=== PATIENT | female | born 1980 | race African-American/Black ===

== ENCOUNTER 2021-05-19 11:31 | Outpatient (CLI) | payer OTHER | END 2021-05-19 23:59 | disposition home or self-care (01) | LOC: RAD 11:31 | PROVIDERS: ATTEND Internal Medicine Infectious Disease | DX: Z11.1 Encounter for screening for respiratory tuberculosis (principal) | CPT/HCPCS: 71046 ==

== ENCOUNTER 2022-10-10 12:45 | Outpatient (CLI) | payer BC ==
[2022-10-10 13:36] LABS: BASOPHILS # (AUTO) 0.1 X10'3 (0-0.2); BASOPHILS % (AUTO) 0.8 % (0-1); EOSINOPHILS # (AUTO) 0.1 X10'3 (0-0.9); EOSINOPHILS % (AUTO) 1.9 % (0-6); HEMOGLOBIN 9.1 g/dl (12.0-16.0); LYMPHOCYTES # (AUTO) 1.7 X10'3 (1.1-4.8); LYMPHOCYTES % (AUTO) 25.5 % (21-51); MEAN CORPUSCULAR HEMOGLOBIN 22.6 PG (27.0-31.0); MEAN CORPUSCULAR HGB CONC 29.6 g/dL (33.0-36.5); MEAN PLATELET VOLUME 9.5 FL (7.4-10.4); MONOCYTES # (AUTO) 0.6 X10'3 (0-0.9); MONOCYTES % (AUTO) 8.7 % (2-12); NEUTROPHILS # (AUTO) 4.2 X10'3 (1.8-7.7); NEUTROPHILS % (AUTO) 63.1 % (42-75); PLATELET COUNT 303 X10'3 (140-440); RED BLOOD COUNT 4.05 X10'6 (4.20-5.60); RED CELL DISTRIBUTION WIDTH 25.3 % (11.5-14.5); WHITE BLOOD COUNT 6.7 X10'3 (4.5-11.0)
[2022-10-10 14:06] LABS: ALANINE AMINOTRANSFERASE 11 U/L (12-78); ALBUMIN 3.5 G/DL (3.4-5.0); ALBUMIN/GLOBULIN RATIO 0.9 (1.1-1.5); ALKALINE PHOSPHATASE 48 IU/L (46-116); ANION GAP 5 (8-16); ASPARTATE AMINO TRANSFERASE 19 U/L (10-37); BILIRUBIN,TOTAL 0.1 MG/DL (0.1-1.0); BLOOD UREA NITROGEN 11 MG/DL (7-18); BUN/CREATININE RATIO 16.4 (10.0-20.0); CALCIUM 8.9 MG/DL (8.5-10.1); CHLORIDE 106 MMOL/L (99-107); CREATININE 0.67 MG/DL (0.40-0.90); GLUCOSE 91 MG/DL (70-104); POTASSIUM 3.6 MMOL/L (3.5-5.1); SODIUM 140 MMOL/L (135-145); TOTAL CARBON DIOXIDE 29.3 MMOL/L (24-32); TOTAL PROTEIN 7.4 G/DL (6.4-8.2); eGFR > 90 ML/MIN
[2022-10-10 14:07] LABS: CHOL/HDL RATIO 3.4 (0.00-4.99); CHOLESTEROL 174 MG/DL (0-200); HDL CHOLESTEROL 51 MG/DL (35-60); LDL CHOLESTEROL 94 MG/DL (50-100); TRIGLYCERIDES 130 MG/DL (20-135)
[2022-10-10 14:40] LABS: MEAN CORPUSCULAR VOLUME 76.5 FL (78-98)
[2022-10-10 14:43] LABS: PLATELET ESTIMATE NORMAL
[2022-10-10 14:44] LABS: ANISOCYTOSIS 3+; ELLIPTOCYTES FEW; HYPOCHROMASIA 1+; MICROCYTOSIS 1+
[2022-10-10 14:46] LABS: LARGE PLATELETS FEW
[2022-10-10 14:50] LABS: POIKILOCYTOSIS 1+
== END 2022-10-10 23:59 | disposition home or self-care (01) ==
LOC: LAB 12:45
PROVIDERS: ATTEND Physician Assistant
DX: R73.01 Impaired fasting glucose (principal); R53.83 Other fatigue; Z76.89 Persons encountering health services in other specified circumstances
CPT/HCPCS: 36415; 80053; 80061; 84439; 84443; 85008; 85025

== ENCOUNTER 2023-04-05 23:00 | Emergency (ER) | payer BC, OTHER ==
[~2023-04-05] VITALS: Ht 170.2 cm; Wt 70.9 kg
[2023-04-05] MEDS ORDERED: BICT1TAB PO (23:26)
[2023-04-05 23:44] VITALS: BP 118/74; PULSE 74; RESP 17; TEMP 98.2; O2SAT 99
== END 2023-04-05 23:47 | disposition home or self-care (01) ==
LOC: ER 23:00
DX: Z77.21 Contact with and (suspected) exposure to potentially hazardous body fluids (principal); Z79.899 Other long term (current) drug therapy
CPT/HCPCS: 99283

== ENCOUNTER → 2023-08-16 | Outpatient (CLI) | payer BC ==
[~2023-08-16] MED LIST: BICT1TAB PO
[2023-08-16 15:57] LABS: BASOPHILS # (AUTO) 0.1 X10'3 (0-0.2); EOSINOPHILS # (AUTO) 0.2 X10'3 (0-0.9); HEMOGLOBIN 7.7 g/dl (12.0-16.0)
[2023-08-16 15:59] LABS: BASOPHILS % (AUTO) 1.2 % (0-1); EOSINOPHILS % (AUTO) 2.6 % (0-6); HEMATOCRIT 26.4 % (35.0-45.0); LYMPHOCYTES # (AUTO) 1.6 X10'3 (1.1-4.8); LYMPHOCYTES % (AUTO) 27.6 % (21-51); MEAN CORPUSCULAR HEMOGLOBIN 19.6 PG (27.0-31.0); MEAN CORPUSCULAR HGB CONC 29.1 g/dL (33.0-36.5); MEAN CORPUSCULAR VOLUME 67.4 FL (78-98); MEAN PLATELET VOLUME 9.9 FL (7.4-10.4); MONOCYTES # (AUTO) 0.7 X10'3 (0-0.9); MONOCYTES % (AUTO) 11.3 % (2-12); NEUTROPHILS # (AUTO) 3.4 X10'3 (1.8-7.7); NEUTROPHILS % (AUTO) 57.3 % (42-75); PLATELET COUNT 288 X10'3 (140-440); RED BLOOD COUNT 3.92 X10'6 (4.20-5.60); RED CELL DISTRIBUTION WIDTH 17.8 % (11.5-14.5); WHITE BLOOD COUNT 5.9 X10'3 (4.5-11.0)
[2023-08-16 16:21] LABS: ALANINE AMINOTRANSFERASE 16 U/L (12-78); ALBUMIN 3.6 G/DL (3.4-5.0); ALBUMIN/GLOBULIN RATIO 0.9 (1.1-1.5); ALKALINE PHOSPHATASE 43 IU/L (46-116); ANION GAP 7 (8-16); ASPARTATE AMINO TRANSFERASE 22 U/L (10-37); BILIRUBIN,TOTAL 0.4 MG/DL (0.1-1.0); BLOOD UREA NITROGEN 14 MG/DL (7-18); BUN/CREATININE RATIO 20.9 (10.0-20.0); CALCIUM 8.6 MG/DL (8.5-10.1); CHLORIDE 106 MMOL/L (99-107); CHOL/HDL RATIO 3.1 (0.00-4.99); CHOLESTEROL 203 MG/DL (0-200); CREATININE 0.67 MG/DL (0.40-0.90); GLUCOSE 102 MG/DL (70-104); HDL CHOLESTEROL 65 MG/DL (35-60); LDL CHOLESTEROL 115 MG/DL (50-100); POTASSIUM 3.9 MMOL/L (3.5-5.1); SODIUM 140 MMOL/L (135-145); THYROID STIMULATING HORMONE 1.51 ulU/ml (0.34-4.50); TOTAL CARBON DIOXIDE 26.7 MMOL/L (24-32); TOTAL PROTEIN 7.7 G/DL (6.4-8.2); TRIGLYCERIDES 75 MG/DL (20-135); eGFR > 90 ML/MIN
[2023-08-16 16:29] LABS: PLATELET ESTIMATE NORMAL
[2023-08-16 16:30] LABS: ANISOCYTOSIS 1+; MICROCYTOSIS 2+; STOMATOCYTES FEW
== END | disposition home or self-care (01) ==
LOC: LAB 15:29
PROVIDERS: ATTEND Nurse Practitioner
DX: R53.83 Other fatigue (principal); Z13.220 Encounter for screening for lipoid disorders
CPT/HCPCS: 80053; 80061; 84443; 85008; 85025

== ENCOUNTER 2024-11-23 07:04 | Outpatient (CLI) | payer BC ==
[2024-11-23 07:54] LABS: % IRON SATURATION 3 % (11-46)
[2024-11-23 07:58] LABS: MEAN PLATELET VOLUME 9.2 FL (7.4-10.4); RED CELL DISTRIBUTION WIDTH 22.5 % (11.5-14.5)
[2024-11-23 08:07] LABS: CREATININE 0.62 MG/DL (0.40-0.90); TOTAL CARBON DIOXIDE 24.6 MMOL/L (24-32); eGFR > 90 ML/MIN
[2024-11-23] MEDS ORDERED: OMEP40CA21 PO (19:49)
[2024-11-23] MEDS ORDERED: ACET-2119 PO (19:49)
[2024-11-24] MEDS ORDERED: FERR325T7 PO (12:10)
[2024-11-24] MEDS ORDERED: DOCU-171 PO (12:11)
== END 2024-11-23 23:59 | disposition home or self-care (01) ==
LOC: RAD 07:04
PROVIDERS: ATTEND Nurse Practitioner
DX: D64.9 Anemia, unspecified (principal)
CPT/HCPCS: 80053; 82728; 83540; 83550; 85025

== ENCOUNTER 2024-11-23 11:22 | Inpatient (IN) | payer BC ==
[~2024-11-23] VITALS: Ht 167.6 cm; Wt 70.5 kg
[2024-11-23 11:52] LABS: MEAN PLATELET VOLUME 9.0 FL (7.4-10.4); RED CELL DISTRIBUTION WIDTH 21.9 % (11.5-14.5)
[2024-11-23 11:57] LABS: APTT 23 SECONDS (22-32); INR 1.0 INR
[2024-11-23 11:58] LABS: CREATININE 0.66 MG/DL (0.40-0.90); TOTAL CARBON DIOXIDE 24.4 MMOL/L (24-32); eCRCL 101 ML/MIN; eGFR > 90 ML/MIN
[2024-11-23 12:25] LABS: PLATELET ESTIMATE DECREASED
[2024-11-23 12:28] LABS: ELLIPTOCYTES 1+
--- NOTE | 2024-11-23 15:52 | Physician Documentation ---
History of Present Illness ~ Chief Complaint: Abnormal Lab(s) Stated Complaint: SEE CHIEF Time Seen by MD: 14:35 Mode of Arrival: Ambulatory HPI 44-year-old female presenting until hospital after she was called by her primary care physician and told that she has a very low hemoglobin. Patient had labs done as an outpatient and had a hemoglobin of 6.8. Patient states that she has a history of fibroids and that for the past six months more or less she has been having very heavy periods. Occasionally she will feel weak and fatigued however over the past couple of days she has not felt this way. She otherwise denies any abdominal pain, chest pain, dizziness or any other associated symptoms. Reports that she is scheduled to have a pelvic transvaginal ultrasound done tomorrow morning. Medication Reconciliation Allergies: Coded Allergies: No Known Allergies (Unverified , 11/23/24) Scheduled Bictegrav/Emtricit/Tenofov Ala (Biktarvy 50-200-25 mg Tablet), 1 TAB PO DAILY Past Medical History Past Medical History: No Pertinent History Past Surgical History: no surgical history Alcohol Use: None Drug Use: none Lives In: Home Occupation: employed Review of Systems All Other Systems at this time: Reviewed and Negative Physical Exam Vital Signs: Temperature: 97.9, Source: Temporal, Heart Rate: 72, Respiratory Rate: 18, BP: 122/77, Pulse Oximetry: 100, Weight: 70.450 Oxygen Flow Rate: 0 Physical Exam I have reviewed the triage vitals. CONST: Well developed and well nourished. In no acute distress HENT: Head Atraumatic EYES: Pupils are equal, round and reactive to light. Normal conjunctiva NECK: Normal range of motion. Supple. CARDIO: Normal rate and regular rhythm. No murmurs, rubs, or gallops. S1, S2. PULM/CHEST: No respiratory distress. Lungs clear to auscultation. No wheeze ABD: Soft and nontender. Nondistended. Bowel sounds normal. No guarding. : Exam deferred MSK: No edema. No deformity. NEURO: Alert and oriented to person, place and time. Moving all extremities SKIN: Warm and dry. PSYCH: Normal mood and affect. Good eye contact. Progress Results/Orders Results/Orders Vital Signs 11/23/24 11/23/24 11/23/24 11:26 14:52 15:01 Temp 97.9 Pulse 94 72 Resp 18 18 B/P (MAP) 125/82 122/77 (92) Pulse Ox 100 100 O2 Flow Rate 0 Laboratory Tests Test 11/23/24 11:35 White Blood Count 5.5 Red Blood Count 3.60 L Hemoglobin 6.8 *L Hematocrit 22.6 L Mean Corpuscular Volume 62.8 L Mean Corpuscular Hemoglobin 18.8 L Mean Corpuscular Hemoglobin Concent 29.9 L Red Cell Distribution Width 21.9 H Platelet Count 143 Mean Platelet Volume 9.0 Neutrophils (%) (Auto) 52.1 Lymphocytes (%) (Auto) 35.1 Monocytes (%) (Auto) 9.7 Eosinophils (%) (Auto) 1.8 Basophils (%) (Auto) 1.3 H Neutrophils # (Auto) 2.9 Lymphocytes # (Auto) 1.9 Monocytes # (Auto) 0.5 Eosinophils # (Auto) 0.1 Basophils # (Auto) 0.1 CBC Comment Platelet Estimate Decreased Red Blood Cell Morphology Perf Polychromasia 1+ Hypochromasia 2+ Basophilic Stippling Anisocytosis 3+ Microcytosis 2+ Elliptocytes 1+ Prothrombin Time 10.1 INR International Normalized Ratio 1.0 Activated Partial Thromboplast Time 23 Coagulation Comments Sodium Level 139 Potassium Level 3.9 Chloride Level 106 Carbon Dioxide Level 24.4 Anion Gap 9 Blood Urea Nitrogen 9 Creatinine 0.66 Estimated GFR/1.73 m2 > 90 BUN/Creatinine Ratio 13.6 Glucose Level 104 Calcium Level 8.9 Total Bilirubin 0.3 Aspartate Amino Transf (AST/SGOT) 18 Alanine Aminotransferase (ALT/SGPT) 10 L Alkaline Phosphatase 48 Total Protein 7.3 Albumin 3.6 Globulin 3.7 Albumin/Globulin Ratio 1.0 L Chemistry Comments Departure Referrals: NO PRIMARY CARE PROVIDER (PCP) ELLE GIBSON MD Nov 23, 2024 15:52
[2024-11-23] MEDS ORDERED: potassium Cl 20 mEq SR tablet PO PRN ×2 (17:25)
[2024-11-23] MEDS ORDERED: potassium Cl 40MEQ/1/2NS 520ml 520 ML IV PRN (17:25)
[2024-11-23] MEDS ORDERED: magnesium hydroxide 30ml (MOM) UD suspension PO PRN (17:25)
[2024-11-23] MEDS ORDERED: magnesium sulf-water 4G/100mL 100 ML IV PRN (17:25)
[2024-11-23] MEDS ORDERED: mag hydrox/Alum hydrox/simeth 30ml oral suspension PO PRN (17:25)
[2024-11-23] MEDS ORDERED: ondansetron/PF 4mg/2ml inj IV PRN (17:25)
[2024-11-23] MEDS ORDERED: magnesium sulf-water 2g/50mL 50 ML IV PRN (17:25)
[2024-11-23] MEDS ORDERED: HYDROcodone/acetaminophen 5mg/325mg tablet PO PRN (17:25)
--- NOTE | 2024-11-23 18:15 | HISTORY AND PHYSICAL ---
History & Physical Providers to ~ History of Present Illness Reason for Admit\Complaint: Anemia, menorrhagia History of Present Illness Marce Schuster is a 44-year-old female with a past medical history of uterine fibroids who presented to the ED after being instructed by her primary care physician to go to ED concerning for low hemoglobin. Presented states she was diagnosed of uterine fibroids in 2016 and started experiencing intermittent heavy menstruation over the past year. Patient does not report any particular symptoms other than chills. Patient denies prior SD/CAD, CVA, cardiac arrhythmia, DVT/PE, or GIB. Patient denies chest pain, palpitations, shortness of breath, abdominal pain, n/v/d, fever, dizziness, dysuria. Initial diagnostic findings are notable for hemoglobin of 6.8g/dL but otherwise vitals procal exam are unremarkable. MEDICAL UNDERWRITER Jeffrey Rizzo consulted. Patient is to be admitted for further workups and treatment. Allergies: Coded Allergies: No Known Allergies (Unverified , 11/23/24) Home Medications Home Medications Active Biktarvy 50-200-25 mg Tablet (Bictegrav/Emtricit/Tenofov Ala) 50 Mg-200 Mg-25 Mg Tablet 1 Tab PO DAILY 30 Days Past Social History Social History Comment Alcohol: Denies Tobacco: Denies Illicit drug use: Denies Living situation: Lives at home with family ROS ROS Other than positives in HPI, all 14 review of systems are negative Exam Vitals: Vital Signs Date Time Temp Pulse Resp B/P (MAP) Pulse Ox O2 Delivery O2 Flow Rate FiO2 11/23/24 17:00 86 18 122/72 (89) 100 0 11/23/24 11:26 97.9 General: A&Ox 3, NAD HEENT: Normocephalic, PERRLA Neck: Supple, trachea midline, no JVD Chest: Clear to auscultation bilaterally Cardiovascular: RRR, S1&S2 Abdomen: Soft and nontender Extremities: No cyanosis/clubbing/or edema Central Nervous System: CN II-XII intact, no focal deficits Musculoskeletal: No paraspinal muscle tenderness, no muscle spasm Skin: Warm and intact Diagnostic Data Last Recorded Lab Results: 11/23/24 1135 11/23/24 1135 Diagnostic Data: Laboratory Tests Test 11/23/24 11:35 Prothrombin Time 10.1 SECONDS (9.0-12.0) INR International Normalized Ratio 1.0 INR Activated Partial Thromboplast Time 23 SECONDS (22-32) Coagulation Comments Additional Plan Assessment & Plan Anemia, microcytic Menorrhagia Symptomatic anemia -reports cold intolerance -Hgb 6.8g/dL, transfuse PRBC, follow iron studies, repeat h/h, US pelvis; consulted MEDICAL UNDERWRITER Dr. Guillaume who recommended supportive care with transfusion as needed and f/u outpatient with him DVT/VTE prophylaxis: SCDs Code status: Full code I spent a total of 35 minutes discussing Advanced Care Planning measures with the patient. Advance care planning: Discussed with patient the importance of advance care planning in case of emergent situation. We discussed various resuscitative measures/ ACP with the patient at the time of admission. Patient voiced understanding and patient has decided on a full code status. Date of Service: Nov 23, 2024 Billing Provider: CATY TATE Common Visit Codes: 36146-QBBZXNY INP/OBS CARE (HIGH) Secondary Visit Codes: 37799-RKXEONCN CARE PLAN 30 MINUTES CATY TATE Nov 23, 2024 18:15
--- NOTE | 2024-11-23 18:46 | RADIOLOGY REPORT ---
Technique: Real-time ultrasound images through the pelvis using a transabdominal transducer. Indication: vaginal bleeding Comparison: None Findings: The uterus measures 14.3 cm. The endometrial stripe measures 8mm, overall suboptimally characterizedHeterogeneous appearance of the uterus. Multiple uterine leiomyomas including subserosal leiomyoma measuring 2.5 cm, intramural leiomyoma measuring 3.4 cm, submucosal leiomyoma measuring 2.7 cm, intramural leiomyoma measuring 3.9 cm. Right ovary measures 2.2 x 2.3 x 3.5 cm. Normal flow on color doppler images. No focal masses are identified. Left ovary measures 3.3 x 2.5 x 2.1 cm. Normal flow on color doppler images. No focal masses are identified. There is no significant free fluid in the pelvis. Impression: Enlarged uterus with multiple leiomyomas. Suboptimal characterization of the endometrium . MRI pelvis with and without contrast can be obtained to further evaluate
[2024-11-23 19:29] VITALS: BP 110/72; PULSE 79; RESP 19; TEMP 98.4
[2024-11-23] MEDS ORDERED: OMEP40CA21 PO (19:49)
[2024-11-23] MEDS ORDERED: ACET-2119 PO (19:49)
[2024-11-23] MEDS: K and/or MAG REPLACEMENT MC SCH (19:57)
[2024-11-23] MEDS: docusate sod 100mg capsule PO SCH (20:00)
[2024-11-23 21:30] VITALS: BP 121/49; PULSE 79; RESP 16; TEMP 98.4; O2SAT 99
[2024-11-23 22:00] VITALS: BP 107/54; PULSE 86; RESP 21; TEMP 98.7; O2SAT 100
[2024-11-23] MEDS: iron dextran complex inj. 25 MG in normal saline 50ml IV soln 100 ML IV ONE (22:27)
[2024-11-23 22:36] LABS: MEAN PLATELET VOLUME 9.7 FL (7.4-10.4); RED CELL DISTRIBUTION WIDTH 23.5 % (11.5-14.5)
[2024-11-23 22:42] LABS: % IRON SATURATION 11 % (11-46)
[2024-11-23 22:43] LABS: APTT 24 SECONDS (22-32); INR 1.0 INR
[2024-11-23 23:35] LABS: MEAN PLATELET VOLUME 9.1 FL (7.4-10.4); RED CELL DISTRIBUTION WIDTH 23.3 % (11.5-14.5)
[2024-11-23] MEDS: iron dextran complex inj. 75 MG in normal saline 100ml IV soln 100 ML IV ONE (23:43)
[2024-11-24 00:33] VITALS: RESP 16; O2SAT 99
[2024-11-24 02:00] VITALS: BP 109/64; PULSE 75; RESP 18; TEMP 99.1; O2SAT 100
[2024-11-24 04:13] LABS: MEAN PLATELET VOLUME 8.9 FL (7.4-10.4)
[2024-11-24 04:36] LABS: CREATININE 0.85 MG/DL (0.40-0.90); TOTAL CARBON DIOXIDE 25.5 MMOL/L (24-32); eCRCL 78 ML/MIN; eGFR 88 ML/MIN
[2024-11-24 04:52] LABS: RED CELL DISTRIBUTION WIDTH 23.0 % (11.5-14.5)
[2024-11-24 07:00] VITALS: BP 119/60; PULSE 84; RESP 18; TEMP 99.5; O2SAT 100
[2024-11-24] MEDS ORDERED: iron dextran complex inj. 100 MG in normal saline 100ml IV soln 98 ML IV SCH (08:00)
[2024-11-24] MEDS: iron dextran complex inj. 100 MG in normal saline 100ml IV soln 100 ML IV SCH (09:03)
[2024-11-24 11:00] VITALS: BP 103/60; PULSE 75; RESP 13; TEMP 98; O2SAT 99
[2024-11-24] MEDS ORDERED: FERR325T7 PO (12:10)
[2024-11-24] MEDS ORDERED: DOCU-171 PO (12:11)
--- NOTE | 2024-11-24 20:00 | DISCHARGE SUMMARY ---
Discharge Summary Providers to No new complaint today feels better today asking to be discharged home ~ Discharge Summary Assessment Uterine leiomyomas Uterine bleeding Post hemorrhagic symptomatic anemia Menorrhagia Cold intolerance Admission Diagnosis: Anemia, menorrhagia Admission Diagnosis Comment: Uterine leiomyomas Uterine bleeding Post hemorrhagic symptomatic anemia Menorrhagia Cold intolerance Hospital Course DATE OF ADMISSION: November 23, 2024 DATE OF DISCHARGE: November 24, 2024 Discharge Diagnosis\Comment: Uterine leiomyomas Uterine bleeding Post hemorrhagic symptomatic anemia Menorrhagia Cold intolerance Operations\Procedures: Blood transfusion Consultants: OBGYN doctor Complications: Non Condition on DC: Stable Discharge Summary: Marce Schuster is a 44-year-old female with a past medical history of uterine fibroids who presented to the ED after being instructed by her primary care physician to go to ED concerning for low hemoglobin. Presented states she was diagnosed of uterine fibroids in 2016 and started experiencing intermittent heavy menstruation over the past year. Patient does not report any particular symptoms other than chills. Patient denies prior GA/CAD, CVA, cardiac arrhythmia, DVT/PE, or GIB. Patient denies chest pain, palpitations, shortness of breath, abdominal pain, n/v/d, fever, dizziness, dysuria. Initial diagnostic findings are notable for hemoglobin of 6.8g/dL but otherwise vitals procal exam are unremarkable. LEAFLET DISTRIBUTOR Jeffrey Rizzo consulted. Patient is to be admitted for further workups and treatment. After admission patient was extensively evaluated treated hemoglobin 8.2 today asking to be discharged home, she will be discharged in stable condition medication reconciled follow-up with OBGYN in the morning, today on physical exam Vital signs, stable ,afebrile. Pulse Oximetry reflects adequate oxygenation. Location reconciled General: well developed, well nourished. Awake , alert, and oriented x4, resting comfortably in the bed, in no acute distress . Skin: Warm, dry, no pallor, no rash or petechiae. HEENT: Atraumatic, normocephalic, EOMI, anicteric sclera B; pink conjunctiva; PERRLA, normal oropharynx, moist oral and nasal mucosa. Tympanic membrane , nose , throat clear. Neck: Trachea midline. Supple, full range of motion, no JVD, bruit , hepatojugular reflex , lymphadenopathy or masses, or other lesions Cardiac: Regular rhythm, regular rate no murmurs, rubs, or gallops. Normal S1 and S2, no S3 noticed. PMI is normal. Respiratory: Equal breath sounds bilaterally, no tachypnea; lungs clear to auscultation bilaterally, no wheezing ,rub or rales, or crackles. Chest wall is symmetric and without deformity. No signs of trauma. Chest wall is nontender. No signs of respiratory distress. Resonance is normal upon percussion bila terally. Gastrointestinal: Abdomen symmetric, non-distended, soft, non-tender, normal bowel sounds x4 quadrant, normoactive, no hepatosplenomegaly , no masses , no bruit, no flank pain bilaterally. No voluntary guarding, rebound, or rigidity. No tenderness to percussion. No pulsatile masses. Equal femoral pulses. No Atkinson's sign or McBurney point tenderness. Back; no CVA tenderness bilaterally, no deformities. Neck and back are without deformity as well. No tenderness noted on palpation of the spinous processes. Spinous processes are midline. Cervical, thoracic, and lumbar paraspinal muscles are not tender and are without spasm. Musculoskeletal: Extremities, normal range of motion, non-tender, muscle strength 5/5 x 4. Negative Homans signs bilaterally on lower extremity. Distal pulses full symmetrical, no clubbing, cyanosis , edema. Neurological: Speech is clear, alert, and oriented x 4. No motor or sensory deficit, deep tendon reflexes normal, cerebellar intact. Cranial nerves II-XII intact. Psych: Alert and or appropriate, normal affect. Vascular: Good distal pulses, which are equal x4; capillary refill less than 2 seconds. Lymphatic, no lymphadenopathy. *Problems/Diagnosis: (1) Anemia Total Time Spent on D/C: > 30 Minutes Date of Service: Nov 24, 2024 Billing Provider: MARISELA BARROW MD Common Visit Codes: 09907-PFR/OBS DISCH DAY >30min MARISELA BARROW MD Nov 24, 2024 20:00
== END 2024-11-24 12:52 | disposition home or self-care (01) | DRG 812 ==
LOC: ER 11:23 → ED HOLD 17:36 → PCU 3S 21:35
PROVIDERS: ADMIT Nurse Practitioner Family; ATTEND Nurse Practitioner Family
PROC: 30233N1 Transfusion of Nonautologous Red Blood Cells into Peripheral Vein, Percutaneous Approach (ICD-10-PCS; principal; 2024-11-23)
DX: D50.9 Iron deficiency anemia, unspecified (principal); D25.9 Leiomyoma of uterus, unspecified; N92.0 Excessive and frequent menstruation with regular cycle
CPT/HCPCS: 36415; 36430; 76856; 80053; 83540; 83550; 83735; 84443; 85008; 85025; 85027; 85610; 85730; 86885; 86900; 86901; 86920; 87081; 93976; 99285; G0378; J1750; J3490; J7040; P9016

== ENCOUNTER 2025-01-21 05:29 | Inpatient (IN) | payer BC, OTHER ==
--- NOTE | 2025-01-15 11:37 | ELECTROCARDIOGRAPH REPORT ---
[facility] Test Date: 2025-01-15 Test Time: 12:34:48 Pat Name: ADITHYA TAY Department: [facility]-PRE-OP Patient ID: [facility]-[id number] Room: Gender: F Process Environmental Technician: ALE : 1980 Requested By: MOUNA CHRISTENSEN Order Number: [id number] Reading MD: Dr. MARI Munguia Measurements Intervals [place] Rate: 71 P: 66 [place]: 177 QRS: 39 QRSD: 86 T: 52 QT: 362 QTc: 394 Interpretive Statements Sinus rhythm Electronically Signed On 01-15-2025 17:56:[address] MARI Munguia Please click the below link to view image of tracing.
[2025-01-15 12:02] LABS: LEUKOCYTE ESTERASE ,URINE NEGATIVE (Neg); NITRITES, URINE NEGATIVE (Neg); OCCULT BLOOD,URINE NEGATIVE (Neg)
[2025-01-15 12:05] LABS: UA COLLECTION TYPE NON-SPECIFIED
[2025-01-15 12:06] LABS: MEAN PLATELET VOLUME 9.8 FL (7.4-10.4); PRE OP HEMATOCRIT 30.8 % (35.0-45.0); PRE OP PLATELET COUNT 259 X10'3 (140-440); PRE OP WHITE BLOOD COUNT 6.0 10'3 (4.8-10.8); RED CELL DISTRIBUTION WIDTH 22.1 % (11.5-14.5)
[2025-01-15 12:09] LABS: URINE HCG NEGATIVE (NEG)
[2025-01-15 12:14] LABS: CREATININE 0.61 MG/DL (0.40-0.90); PRE OP ALT 8 U/L (30-65); PRE OP ANION GAP 7 (8-16); PRE OP AST 19 U/L (10-37); PRE OP BILIRUB, TOTAL 0.2 MG/DL (0.0-1.0); PRE OP GLUCOSE 89 MG/DL (70-104); PRE OP POTASSIUM 4.1 MMOL/L (3.4-5.1); PRE OP SODIUM 140 MMOL/L (135-145); TOTAL CARBON DIOXIDE 26.7 MMOL/L (24-32); eGFR > 90 ML/MIN
[2025-01-15 12:16] LABS: SQUAMOUS EPITHELIAL CELL,UR FEW /LPF (FEW)
[2025-01-15 12:17] LABS: MUCUS STRANDS MODERATE /LPF (Neg)
[2025-01-15 12:22] LABS: PRE OP HEMOGLOBIN 9.4 g/dL (12.0-16.0)
--- NOTE | 2025-01-15 12:52 | RADIOLOGY REPORT ---
DI CHEST,TWO VIEWS, CLINICAL HISTORY: PREOP pain COMPARISON: CHEST,TWO VIEWS on DOS: 05/19/21 TECHNIQUE: Frontal and lateral view of the chest was obtained FINDINGS: Lines and Tubes: None Lungs: No focal consolidation. Pleura: No effusion. No pneumothorax. Cardiomediastinal contours: Unremarkable Bones: No acute osseous abnormality. IMPRESSION: No acute cardiopulmonary disease.
[2025-01-21] VITALS (18 sets, daily range): BP systolic 97–146; BP diastolic 53–92; PULSE 67–92; RESP 14–16; TEMP 97.5–98.5; O2SAT 99–100
[~2025-01-21] VITALS: Ht 167.6 cm; Wt 68.9 kg
[~2025-01-21 05:29] MED LIST changes: +ACET-2006 PO; -BICT1TAB PO; +CALC500T13 PO; +FERR-97 PO; +IBUP-1984 PO; +MULT-1085 PO; +OMEP20CA16 PO; +VITC500T PO
[2025-01-21] MEDS: ceFOXitin 2GM-NS 100mL ADDvant 100 ML IV ONE (05:30)
[2025-01-21] MEDS: ringers solution, lacted 1,000 ML IV SCH ×2 (06:55→12:03)
[2025-01-21] MEDS ORDERED: BUPIVAcaine 2.5mg/ml inj 50ml vial (contains preservative) ONE (06:59)
[2025-01-21] MEDS ORDERED: vasoPRESSIN 20 units/ml inj. ONE (06:59)
[2025-01-21] MEDS ORDERED: clindamycin phosphate 40gm vag cream ONE (07:00)
[2025-01-21] MEDS ORDERED: BUPIVAcaine/PF 2.5mg/ml (0.25%) 10ml vial ONE (07:12)
[2025-01-21] MEDS ORDERED: midazolam 1 mg/ML 2ml injection ONE (07:34)
[2025-01-21] MEDS ORDERED: fentaNYL /PF 50mcg/ml 5ml ampule ONE (07:35)
[2025-01-21] MEDS ORDERED: ondansetron/PF 4mg/2ml inj IV PRN ×2 (09:00→09:50)
[2025-01-21] MEDS ORDERED: hydrALAZINE 20mg/ml inj. IV PRN (09:00)
[2025-01-21] MEDS ORDERED: morphine 4 MG/ML inj SYRINge IV PRN (09:00)
[2025-01-21] MEDS ORDERED: acetaminophen 1,000mg/100ml IV 100 ML IV PRN (09:00)
[2025-01-21] MEDS ORDERED: HYDROmorphone/PF 0.2 MG/ML SYRINGE IV PRN ×2 (09:00)
[2025-01-21] MEDS ORDERED: labetalol 20mg/4ml (5mg/ml) syringe IV PRN (09:00)
[2025-01-21] MEDS ORDERED: ringers solution, lacted 1,000 ML IV SCH (09:00)
[2025-01-21] MEDS ORDERED: propofol inj 20 ML IV ONE (09:21)
[2025-01-21] MEDS ORDERED: rocuronium 10mg/ml inj IV ONE (09:21)
[2025-01-21] MEDS ORDERED: ondansetron/PF 4mg/2ml inj ONE (09:21)
[2025-01-21] MEDS ORDERED: dexamethasone sod phosphate 4mg/ml inj. ONE (09:21)
[2025-01-21] MEDS ORDERED: acetaminophen 1,000mg/100ml IV 100 ML IV ONE (09:25)
[2025-01-21] MEDS ORDERED: magnesium hydroxide 30ml (MOM) UD suspension PO PRN (09:50)
[2025-01-21] MEDS ORDERED: diazepam inj 5 MG/ML inj. IV PRN (09:50)
[2025-01-21] MEDS ORDERED: normal saline 500ml IV soln 500 ML IV PRN (09:50)
[2025-01-21] MEDS ORDERED: metoclopramide 5 mg/ml inj IV PRN (09:50)
[2025-01-21] MEDS: ketorolac trometh 30MG/ML vial 30 MG/ML VIAL IV PRN (10:12)
--- NOTE | 2025-01-21 10:32 | OPERATIVE REPORT ---
DATE OF SURGERY: 01/21/2025 DICTATING PHYSICIAN: Jeffrey Guillaume MD PREOPERATIVE DIAGNOSES: Chronic menometrorrhagia with anemia and enlarged fibroid uterus. POSTOPERATIVE DIAGNOSES: Chronic menometrorrhagia with anemia and enlarged fibroid uterus. SURGEON: Jeffrey Guillaume MD PRINT PRODUCTION COORDINATOR: first marco Olmos. ANESTHESIOLOGIST: Dr. Sandhu ANESTHESIA: General. PROCEDURE: Diagnostic laparoscopy followed by abdominal hysterectomy with bilateral salpingectomy and preservation of the ovaries. LAPAROSCOPIC FINDINGS: Enlarged fibroid uterus with extremely limited room to perform hysterectomy laparoscopically. ABDOMINAL FINDINGS: Enlarged fibroid uterus with grossly normal-appearing tubes and ovaries. ESTIMATED BLOOD LOSS: 200 mL. COMPLICATIONS: None. INDICATIONS: The patient is a 44-year-old female with chronic menometrorrhagia and pelvic pain with history of severe anemia requiring blood transfusion. The patient no longer desired fertility and agreed to the above procedure. TECHNIQUE: The patient was taken to the OR where general anesthesia was found to be adequate. She was placed in a dorsal lithotomy position. She was prepped and draped in the usual sterile fashion. A surgical pause was performed. A Veress needle was introduced through the umbilicus and the abdomen was insufflated with CO2 gas to 15 mmHg. The Veress needle was removed and a 5 mm trocar was placed through the umbilicus. A laparoscope was introduced and the pelvic organs were inspected. As noted above, the uterus was enlarged and appeared extremely wide for the patient's pelvic structure with very little room for maneuverability to attempt this as a laparoscopic-assisted vaginal hysterectomy. In view of these findings, I decided to convert to a laparotomy. The CO2 gas was allowed to egress. The trocar sleeve was removed. A Pfannenstiel incision was then made with a scalpel and extended down to the fascia. The rectus muscles were divided in the midline and the peritoneum was entered bluntly. At this point, the uterus was grasped and exteriorized. The bowel was packed away with moist laps with excellent visualization now of the entire pelvic cavity. The utero-ovarian ligament was identified and sequentially coagulated and divided with the LigaSure device. The right fallopian tube was then tented up and coagulated and divided along the mesosalpinx. In this fashion, the right ovary was completely freed up and left in situ. The right round ligament was then identified and sequentially coagulated and divided with the LigaSure device. The incision was extended inferiorly along the anterior and posterior leaves of the broad ligament to the level of the cardinal ligaments. The uterine vessels were then identified, coagulated, and divided with the LigaSure device. The uterosacral ligaments were then identified and sequentially coagulated and divided with the LigaSure device. The entire procedure was then duplicated on the left aspect of the uterus. The bladder was dissected up bluntly completely exposing the cervix. Z right angle clamps were then placed inferior to the cervix and the uterus was amputated below the cervix with Wing scissors. The vaginal cuff was then sequentially reapproximated with multiple [id number] #0 Vicryl. Hemostasis was confirmed throughout the pelvis. The pelvic area was irrigated with no bleeding noted. All laps were removed at this point. The peritoneum along with the rectus muscles were then closed as a single layer with a running 0 Vicryl suture. The fascia was reapproximated with a running 0 Vicryl suture. The subcutaneous tissue was reapproximated with interrupted sutures of 2-0 Vicryl. The skin was closed with a Stratafix, Monocryl suture subcuticularly and sealed off with Dermabond. Attention was then turned to the umbilical area. The umbilical incision was sealed off with Dermabond. A transurethral catheter was placed and the procedure was terminated. Sponge, lap, instrument, and needle counts reported correct. COMPLICATIONS: None. PATHOLOGY: Uterus with attached fallopian tubes. DISPOSITION: The patient was taken to the recovery room in stable condition. Jeffrey Guillaume MD TID: [id number] RECEIPT: [id number] ANGEL IRIZARRY
[2025-01-21] MEDS: HYDROcodone/acetaminophen 10/325mg tab PO PRN ×2 (11:07→14:52)
[2025-01-21] MEDS: docusate sod 100mg capsule PO SCH (19:33)
[2025-01-22] VITALS (10 sets, daily range): BP systolic 97–131; BP diastolic 49–75; PULSE 75–88; RESP 14–20; TEMP 97.7–100.1; O2SAT 99–100
[2025-01-22 06:36] LABS: MEAN PLATELET VOLUME 9.8 FL (7.4-10.4); RED CELL DISTRIBUTION WIDTH 19.6 % (11.5-14.5)
[2025-01-22 06:39] LABS: CREATININE 0.61 MG/DL (0.40-0.90); TOTAL CARBON DIOXIDE 28.0 MMOL/L (24-32); eCRCL 109 ML/MIN; eGFR > 90 ML/MIN
[2025-01-22 08:05] LABS: ELLIPTOCYTES FEW; PLATELET ESTIMATE NORMAL
[2025-01-22 10:32] LABS: MEAN PLATELET VOLUME 9.6 FL (7.4-10.4); RED CELL DISTRIBUTION WIDTH 20.4 % (11.5-14.5)
--- NOTE | 2025-01-22 16:19 | DISCHARGE SUMMARY ---
DATE OF DISCHARGE: 01/22/2025 DICTATING PHYSICIAN: Jeffrey Guillaume MD ADMISSION DIAGNOSES: The patient was admitted for surgical management of symptomatic fibroid uterus with chronic menometrorrhagia and pelvic pain as well as history of severe anemia. DISCHARGE DIAGNOSES: Status post diagnostic laparoscopy, converted to abdominal hysterectomy with bilateral salpingectomy and preservation of the ovaries. HOSPITAL COURSE: On 01/21/2025, the patient was taken to the OR for surgical management of her chronic menometrorrhagia, pelvic pain, and dysmenorrhea with a known enlarged fibroid uterus. An initial laparoscopic inspection was performed for assessment of possible laparoscopic assisted vaginal hysterectomy; however, in view of the evident lack of room of surgical field due to the enlarged uterus, this was converted to a laparotomy. Her surgery was uncomplicated with average blood loss. Her postoperative course has been uncomplicated. The patient has remained afebrile throughout her hospital stay and she is ambulating without difficulty this morning. However, the patient's hemoglobin is quite low, although the patient had been bleeding excessively up until her surgery. She stated this morning that she had been feeling symptoms of anemia such as dizziness with ambulation prior to her surgery and she felt that she had bled quite a bit earlier this week. Her preop hemoglobin was 9.4 approximately a week ago on 01/15/2025. Her postoperative hemoglobin this morning was measured twice. PHYSICAL EXAMINATION: GENERAL: The patient is alert and oriented and in no acute distress. VITAL SIGNS: Temperature is 98.2, pulse is 88, blood pressure 106/50, saturating 99% on room air. The patient's urine output is adequate and appropriately balanced. On abdominal exam, patient is mildly distended and the incision is clean, dry, and intact. There is no fluid wave on abdominal exam. ASSESSMENT: Stable postop day 1; however, the patient is significantly anemic with a current hemoglobin of 6.4 and apparently symptomatic just prior to surgery. In view of this, I have recommended a blood transfusion to which the patient has agreed. She is undergoing transfusion of 2 units of PRBCs. There was no evidence of any internal bleeding, however, and the patient's history is quite telling as preoperative anemia. The patient is interested in being discharged home today, hence she will be discharged home when her blood transfusion is completed. FOLLOWUP: She will follow up in my office in 2 weeks. Duration of disability is 6 weeks. DISCHARGE MEDICATIONS: She will resume any outpatient medications as well as as-needed p.r.n. pain meds and a stool softener, which the patient has been provided with. DIET: The patient's diet is to be regular. She has also been given bleeding precautions. DISPOSITION: The patient will be discharged home today in improved condition. Jeffrey Guillaume MD TID: [id number] RECEIPT: [id number] PAMELA/MARIA EUGENIA
[2025-01-22 18:52] LABS: MEAN PLATELET VOLUME 9.5 FL (7.4-10.4); RED CELL DISTRIBUTION WIDTH 18.7 % (11.5-14.5)
== END 2025-01-22 20:00 | disposition home or self-care (01) | DRG 743 ==
LOC: PAS 05:29 → PAS IN 09:52 → SUR 3N 11:12
PROVIDERS: ADMIT Obstetrics & Gynecology Obstetrics; ATTEND Obstetrics & Gynecology Obstetrics
PROC: 0UB70ZZ Excision of Bilateral Fallopian Tubes, Open Approach (ICD-10-PCS; 2025-01-21)
PROC: 0DJW4ZZ Inspection of Peritoneum, Percutaneous Endoscopic Approach (ICD-10-PCS; 2025-01-21)
PROC: 0UT90ZZ Resection of Uterus, Open Approach (ICD-10-PCS; principal; 2025-01-21 07:33)
PROC: 30233N1 Transfusion of Nonautologous Red Blood Cells into Peripheral Vein, Percutaneous Approach (ICD-10-PCS; 2025-01-22)
DX: D25.9 Leiomyoma of uterus, unspecified (principal); D64.9 Anemia, unspecified; N92.1 Excessive and frequent menstruation with irregular cycle; Z53.31 Laparoscopic surgical procedure converted to open procedure
CPT/HCPCS: Z7506; Z7508; 36415; 36430; 71046; 80048; 80053; 81001; 81025; 82948; 85008; 85025; 85027; 86870; 86885; 86900; 86901; 86902; 86905; 86922; 93005; A4314; A4618; A7000; C1758; G0378; J0131; J0694; J1100; J1171; J1885; J2250; J2270; J2405; J2704; J3010; J3490; J7030; J7040; J7120; P9016

== ENCOUNTER 2025-02-08 11:51 | Outpatient (CLI) | payer BC, OTHER ==
[2025-02-08 12:17] LABS: MEAN PLATELET VOLUME 9.7 FL (7.4-10.4); RED CELL DISTRIBUTION WIDTH 21.7 % (11.5-14.5)
[2025-02-08 12:36] LABS: PLATELET ESTIMATE NORMAL
[2025-02-08 12:37] LABS: ELLIPTOCYTES FEW
== END 2025-02-08 23:59 | disposition home or self-care (01) ==
LOC: LAB 11:51
PROVIDERS: ATTEND Nurse Practitioner
DX: D64.9 Anemia, unspecified (principal)
CPT/HCPCS: 36415; 85008; 85025